=== PATIENT | female | born 1990 | race Caucasian/White ===

== ENCOUNTER 2022-01-11 01:22 | Day surgery (SDC) | payer OTHER, SELFPAY ==
[2022-01-02 11:08] VITALS: BMI 23.4
--- NOTE | 2022-01-10 15:35 | P.PNAN_ITS ---
Anes - Initial Pre Proc Eval Procedure: Operation Date: 01/11/22 13:30 Proposed Procedures p Esophagogastroduodenoscopy - Juventino Cui MD Date/Time: 01/10/22 15:35 Surgeon: Juventino Cui MD Pre Op Diagnosis: hematemesis, vomiting Patient Data Age: 31 Gender: F Height: 1.6 m Weight: 60 kg Allergies Allergy/AdvReac Type Severity Reaction Status Date / Time No Known Allergies Allergy Verified 01/02/22 11:05 Home Medications Medication Instructions Recorded Confirmed Type bupropion HCl 150 mg tablet,12 hr 150 mg PO DAILY 01/16/21 01/02/22 History sustained-release etonogestrel 68 mg subdermal 1 implant subdermal ONCE 01/16/21 01/02/22 History implant (Nexplanon) Patient hx anesthesia problems: none Family hx anesthesia problems: none Results Review: All pre-operative results and documents have been reviewed as part of the pre- operative evaluation. [facility] Past Medical History Medical History (Updated 01/11/22 @ 11:39 by Juventino Cui MD) Anxiety GERD (gastroesophageal reflux disease) Surgical History Surgical History (Updated 11/28/21 @ 08:45 by Mila Singh MA) History of tonsillectomy Family History Family History Grandparent Hypertension Cerebrovascular accident Family history of coronary artery disease Diabetes mellitus Mother Family history of malignant neoplasm of ovary Other Family history of arthritis Family history of malignant neoplasm Social History Social History (Updated 11/28/21 @ 08:47 by Mila Singh MA) Smoking status: Former smoker Tobacco type: cigarettes Second hand tobacco smoke exposure: Yes Alcohol intake: current Alcohol use details: socially Substance use: never Substance use type: does not use Living arrangements: with roommate(s) Spiritual care concerns: No Anes - Eval Final PreProcedure Day of Procedure 01/10/22 15:35 Patient weight: normal Heart: regular rate and rhythm Lungs: clear to auscultation Airway: Mallampati scale class II Neurological: alert and oriented Last oral intake: >/= 8 hours ASA classification: II Emergent: no Anesthetic plan: proceed Anesthesia type and monitoring: general GIVS and standard monitoring Results Review: All pre-operative results and documents have been reviewed as part of the pre- operative evaluation. Informed Consent: The patient's anesthetic plan and its attendant risks and benefits were discussed with the patient/family/POA. Questions were solicited and answers provided to the satisfaction of the patient/family/POA.
--- NOTE | 2022-01-11 11:38 | PM.HPGS ---
History of Present Illness History of Present Illness Consent: Risks, benefits, and alternatives have been discussed and questions answered. Patient agrees to proceed with procedure. Chief complaint: hematemesis, vomiting Narrative: Jennifer Morales is a 31 year old female Who was being investigated because of hematemesis.? She states for the past month she has had episodes of emesis at least once a day. Reports emesis is yellow acid or phlegm in nature with intermittent bright red blood. She denies any coffee ground emesis. She has associated epigastric discomfort that radiates to right upper quadrant. epigastric pain is worse 30-60 mins after eating last approximately 2 hours. Pain improves with heating pad. States she was dx with gastric ulcer by upper GI when she was in high school and has been on omeprazole 40 mg since. She continues to have breakthrough reflux symptoms despite PPIs and bland diet. She does have a history of alcohol use, usually 2-3 glasses of vodka and juice daily but stopped drinking 3 weeks ago when the emesis began. She denies any nsaid use or blood thinners.? Review of Systems Review of Systems: All systems reviewed & are unremarkable except as noted in HPI and below PMFSH Past Medical History Medical History Anxiety GERD (gastroesophageal reflux disease) Surgical History Surgical History History of tonsillectomy Family History Family History Grandparent Hypertension Cerebrovascular accident Family history of coronary artery disease Diabetes mellitus Mother Family history of malignant neoplasm of ovary Other Family history of arthritis Family history of malignant neoplasm Social History Social History Smoking status: Former smoker Tobacco type: cigarettes Second hand tobacco smoke exposure: Yes Alcohol intake: current Alcohol use details: socially Substance use: never Substance use type: does not use Living arrangements: with roommate(s) Spiritual care concerns: No Meds Home Medications and Allergies Home Medications Medication Instructions Recorded Confirmed Type bupropion HCl 150 mg tablet,12 hr 150 mg PO DAILY 01/16/21 01/02/22 History sustained-release etonogestrel 68 mg subdermal 1 implant subdermal ONCE 01/16/21 01/02/22 History implant (Nexplanon) Allergies Allergy/AdvReac Type Severity Reaction Status Date / Time No Known Allergies Allergy Verified 01/11/22 12:42 Exam Const: General: alert Orientation/consciousness: patient oriented x3 Resp: Auscultation: clear to auscultation bilaterally Cardio: Rhythm: regular rhythm GI: GI Palp: Yes Soft to palpation and No Tenderness to palpation present (GI) Neuro: General: patient oriented x3 Assessment and Plan Assessment and plan (1) Hematemesis: Code(s): K92.0 - Hematemesis Status: Acute Assessment and Plan: EGD with possible biopsy or dilatation or cautery.
[2022-01-11 12:43] VITALS: BP 119/74; PULSE 63; RESP 20; TEMP 36.9; O2SAT 100
[2022-01-11] MEDS: LACTATED RINGERS 1,000 ML 150 ML IV CONT (12:45)
[2022-01-11 13:00] VITALS: BP 92/55; PULSE 68; RESP 19; O2SAT 99
[2022-01-11 13:10] VITALS: BP 94/53; PULSE 65; RESP 20; O2SAT 100
[2022-01-11 13:20] VITALS: BP 117/74; PULSE 70; RESP 22; O2SAT 100
== END 2022-01-11 13:33 | disposition home or self-care (01) ==
PROVIDERS: PCP Physician Assistant; Visit Provider Internal Medicine Gastroenterology
PROC: 0DJ08ZZ Inspection of Upper Intestinal Tract, Via Natural or Artificial Opening Endoscopic (ICD-10-PCS; CPT 43235; principal; 2022-01-11 13:30)
DX: K21.9 Gastro-esophageal reflux disease without esophagitis (principal); K29.70 Gastritis, unspecified, without bleeding; F41.9 Anxiety disorder, unspecified; Z87.891 Personal history of nicotine dependence
CPT/HCPCS: 43239; 87081; 88305; J2704; J7120

== ENCOUNTER 2022-08-30 09:06 | Outpatient (CLI) | payer OTHER, SELFPAY ==
--- NOTE | ~2022-08-30 | XR_ITS ---
EXAMINATION: XR knee LT 3V DATE: 08/30/2022 09:32 INDICATION: Left knee pain and swelling TECHNIQUE: Three views of the left knee were obtained. COMPARISON: 09/06/2015 FINDINGS: Alignment is normal. No fracture or osteochondral lesion. Joint spaces are normal with no e rosions. No joint effusion/synovitis. Soft tissues are unremarkable. IMPRESSION: 1. No acute osseous abnormality. Reviewed, dictated and finalized at location L. ER PRINTER
== END 2022-08-30 09:07 | disposition home or self-care (01) ==
LOC: CHSIMG 09:12
PROVIDERS: PCP Physician Assistant; Visit Provider Physician Assistant
DX: M25.562 Pain in left knee (principal)
CPT/HCPCS: 73562

== ENCOUNTER 2022-09-20 14:16 | Emergency (ER) | payer OTHER, SELFPAY ==
--- NOTE | 2022-09-20 14:20 | ED.EAR ---
HPI - Ear Problem General Chief complaint: Ear Stated complaint: Right Ear Pain Time Seen by Provider: 09/20/22 14:20 Source: patient and RN notes reviewed History of Present Illness HPI Narrative: Patient is a 32-year-old female who presents to urgent care with complaints of persistent ear pain since August 29. Patient was seen by her primary care doctor on August 29 and given amoxicillin. Denies any other upper respiratory complaints. Denies any fever. Patient has been taking Tylenol for her pain. Patient states her son was diagnosed with strep yesterday. No acute distress noted. Patient aware of the plan of care. Some parts of this dictation were generated by voice recognition software and may contain typographical and/or grammatical inaccuracies. Related Data Home Medications Medication Instructions Recorded Confirmed No Home Medications 09/20/22 09/20/22 Allergies Allergy/AdvReac Type Severity Reaction Status Date / Time No Known Allergies Allergy Verified 09/20/22 14:24 Review of Systems Review of Systems: CONSTITUTIONAL: Denies fever, chills, or sweats. EYES: Denies visual changes, redness, or discharge. ENT: Denies rhinorrhea, congestion. Reports right otalgia and sore throat CARDIOVASCULAR: Denies chest pain, palpitations, or edema. RESPIRATORY: Denies cough or dyspnea. GASTROINTESTINAL: Denies abdominal pain, nausea, vomiting, or diarrhea. GENITOURINARY: Denies dysuria or hematuria. SKIN: Denies rash or itching. MUSCULOSKELETAL: Denies back pain, joint pain, or myalgia. NEUROLOGIC: Denies headache, numbness, or weakness. All other systems reviewed are negative, except as documented in HPI. [facility] Past Medical History Medical History Anxiety GERD (gastroesophageal reflux disease) Surgical History Surgical History History of tonsillectomy Family History Family History Grandparent Hypertension Cerebrovascular accident Family history of coronary artery disease Diabetes mellitus Mother Family history of malignant neoplasm of ovary Other Family history of arthritis Family history of malignant neoplasm Social History Social History Smoking status: Former smoker Tobacco type: cigarettes Second hand tobacco smoke exposure: Yes Alcohol intake: current Alcohol use details: socially Substance use: never Substance use type: does not use Living arrangements: with roommate(s) Occupation/Education: occupation Spiritual care concerns: No Comments At the time of my signature, I reviewed and agree with the nursing past medical, surgical, social, and family history. There is no relevant family history pertinent to the patient complaint. Exam Narrative: GENERAL: This is a well-nourished, well-developed patient, in no apparent distress. HEAD: normocephalic, atraumatic. EYES: PERRL. Sclera clear/white. Vision is grossly intact. EARS: External ears normal, auditory canals clear and without drainage, TMs normal without perforation. Hearing grossly intact. NOSE: External nose normal with no obvious nasal discharge, nares without redness, no rhinorrhea. THROAT: Mucous membranes moist, posterior pharynx clear. Moderate postnasal drainage NECK: Neck supple, non-tender mild bilateral submandibular lymphadenopathy RESPIRATORY: Clear to auscultation. Breath sounds equal bilaterally. No wheezes, rales, or rhonchi. SKIN: warm, intact with no suspicious lesions or rash, good texture and turgor. NEURO: awake, alert, and oriented to person, place and time. There were no obvious focal neurologic abnormalities. EXTREMITIES: No clubbing, cyanosis, or edema. Course Course Level of Care: Express Care Visit Vital Signs Vital signs: Vital Signs Temperature 9
[2022-09-20 14:22] VITALS: BP 142/84; PULSE 83; RESP 16; TEMP 37.2; O2SAT 100
== END 2022-09-20 15:13 | disposition home or self-care (01) ==
PROVIDERS: Emergency Provider Nurse Practitioner Family; PCP Physician Assistant
DX: H92.01 Otalgia, right ear (principal); Z87.891 Personal history of nicotine dependence; K21.9 Gastro-esophageal reflux disease without esophagitis
CPT/HCPCS: 87081; 87880; 99213; G0463

== ENCOUNTER 2023-12-01 09:34 | Emergency (ER) | payer OTHER, SELFPAY ==
--- NOTE | ~2023-12-01 | XR_ITS ---
EXAMINATION: XR skull min 4V DATE: 12/01/2023 10:19 INDICATION: Headache. Fall. TECHNIQUE: 4 views of the skull were obtained. COMPARISON: None. FINDINGS: Bone alignment is normal. No fracture. IMPRESSION: 1. No fracture. Reviewed, dictated and finalized at location A. IMPRESSION: 1. No fracture.
[2023-12-01 09:34] VITALS: BP 136/88; PULSE 88; RESP 18; TEMP 36.3; O2SAT 99
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
== END 2023-12-01 10:29 | disposition home or self-care (01) ==
PROVIDERS: Emergency Provider Emergency Medicine; PCP Family Medicine
DX: H60.502 Unspecified acute noninfective otitis externa, left ear (principal); H66.92 Otitis media, unspecified, left ear; S09.90XA Unspecified injury of head, initial encounter; F41.9 Anxiety disorder, unspecified; Z87.891 Personal history of nicotine dependence
CPT/HCPCS: 70260; 99283

== ENCOUNTER 2024-02-07 07:49 | Outpatient (CLI) | payer OTHER, SELFPAY | END 2024-02-07 07:50 | disposition home or self-care (01) | LOC: ANHAUDASC 07:50 | PROVIDERS: PCP Family Medicine; Visit Provider Otolaryngology | DX: H90.6 Mixed conductive and sensorineural hearing loss, bilateral (principal); H69.92 Unspecified Eustachian tube disorder, left ear; H93.11 Tinnitus, right ear; Z86.69 Personal history of other diseases of the nervous system and sense organs | CPT/HCPCS: 92557; 92567 ==

== ENCOUNTER 2024-07-19 08:12 | Emergency (ER) | payer OTHER, SELFPAY ==
[2024-07-19 08:14] VITALS: BP 116/66; PULSE 65; RESP 16; TEMP 37.5; O2SAT 100
--- NOTE | 2024-07-19 08:32 | ED_ITS ---
HPI - URI/Sore Throat General Chief Complaint: Upper Respiratory Infection Stated Complaint: Sore Throat/Cough History of Present Illness HPI Narrative: Patient presents with sore throat nasal congestion cough fever body aches no shortness of breath no chest pain. Patient denies any trouble swallowing no drooling. Patient does work in [employer] for and has had several COVID positive patients and is worried that she might have COVID-19 at this time. Related Data Home Medications ?Medication ?Instructions ?Recorded ?Confirmed ?Last Taken ?Type etonogestrel 68 mg subdermal 1 implant subdermal ONCE 07/19/24 Unknown History implant (Nexplanon) Allergies Allergy/AdvReac Type Severity Reaction Status Date / Time No Known Allergies Allergy Verified 07/19/24 08:37 Review of Systems Review of Systems: CONSTITUTIONAL: Denies chills, or sweats. Reports fever and generalized body aches EYES: Denies visual changes, redness, or discharge. ENT: Denies otalgia. Reports nasal congestion runny nose and sore throat CARDIOVASCULAR: Denies chest pain, palpitations, or edema. RESPIRATORY: Denies dyspnea. Reports occasional cough GASTROINTESTINAL: Denies abdominal pain, nausea, vomiting, or diarrhea. GENITOURINARY: Denies dysuria or hematuria. SKIN: Denies rash or itching. MUSCULOSKELETAL: Denies back pain, joint pain, or myalgia. Reports generalized body aches NEUROLOGIC: Denies headache, numbness, or weakness. PSYCHIATRIC: Denies anxiety or depression. [facility] Past Medical History Medical History Anxiety GERD (gastroesophageal reflux disease) Surgical History Surgical History History of tonsillectomy Family History Family History Grandparent Hypertension Cerebrovascular accident Family history of coronary artery disease Diabetes mellitus Mother Family history of malignant neoplasm of ovary Other Family history of arthritis Family history of malignant neoplasm Social History Social History Smoking status: Former smoker Tobacco type: cigarettes Second hand tobacco smoke exposure: Yes Alcohol intake: current Alcohol use details: socially Substance use: never Substance use type: does not use Living arrangements: with roommate(s) Occupation/Education: occupation Spiritual care concerns: No Comments At time of signature, agree with nursing past medical, surgical, social and family history. There is no relevant family history pertinent to the presenting complaint Exam Narrative: The patient is a well-developed, well-nourished in no acute distress. SKIN: Skin is warm and dry without erythema, swelling or exudate. There is good turgor. No tenting. HEAD: Atraumatic. Normocephalic. No temporal or scalp tenderness. EYES: Moist and bright. Sclera and conjunctivae normal. No discharge. PERRLA. Extraocular motions intact. Gross visual acuity intact. EARS: Pinna is normal shape and contour. Clear external auditory canals. TM pearly aguilar with good cone of light, no erythema or suppuration. Bilateral cerumen noted no gross hearing deficit. NOSE: pink, moist mucosa with good air movement. Clear rhinorrhea without nasal flaring. Septum midline. Mouth: moist mucous membranes. THROAT; mild erythema noted to posterior oropharynx with moderate postnasal drainage. Without exudate or ulceration.. Uvula midline. Normal movement of soft palate. NECK: Supple and nontender with full range of motion without discomfort. No meningeal signs. LUNGS: Equal and bilateral breath sounds without wheezes, rales or rhonchi. CHEST: The chest wall is without retractions or use of accessory muscles. HEART: Has a regular rate and rhythm without murmur, gallops, click or rub. ABDOMEN: Soft, nontender with positive active bowel sounds. No rebound tenderness. EXTREMITIES: Without cyanosis, clubbing or edema. Equal 2+ distal pulses and 2 second capillary refill noted. NEUROLOGIC: alert, active, . The patient moves all extremities with normal muscle strength. Normal muscle tone is noted. Normal coordination is noted. NO focal neurological findings noted. Course Course Level of Care: Express Care Visit Vital Signs Vital signs: Vital Signs Temperature 37.5 C 07/19/24 08:14 Pulse Rate 65 07/19/24 08:14 Respiratory Rate 16 07/19/24 08:14 Blood Pressure 116/66 07/19/24 08:14 Pulse Oximetry 100 07/19/24 08:14 Oxygen Delivery Room Air 07/19/24 08:14 Temperature 37.5 C 07/19/24 08:14 Pulse Rate 65 07/19/24 08:14 Respiratory Rate 16 07/19/24 08:14 Blood Pressure 116/66 07/19/24 08:14 Pulse Oximetry 100 07/19/24 08:14 Oxygen Delivery Room Air 07/19/24 08:14 Discharge Plan Discharge Clinical Impression: Viral infection Upper respiratory infection Qualifiers: URI type: unspecified URI Qualified Code(s): J06.9 - Acute upper respiratory infection, unspecified Pharyngitis Qualifiers: Pharyngitis/tonsillitis etiology: unspecified etiology Qualified Code(s): J02.9 - Acute pharyngitis, unspecified Additional Instructions: *Throw away your current toothbrush and begin using a new toothbrush in 48 hours in order to prevent re-infection. If anyone else's toothbrush is stored near yours, they should also throw away their current toothbrush and begin using a new one. *Sanitize all reusable water bottles. *Do not share items with others. *Wash your hands often. Supportive care/Soothing measures/Pain relief: *Avoid cigarette smoke (including secondhand smoke) *Avoid acidic foods and beverages *Eat a soft diet for the next 3-4 days *Salt water gargles may alleviate some of the throat discomfort. Most recipes call for ? to ? teaspoon of salt per 8 ounces (approximately 240 mL) of warm water. *You can take tylenol or ibuprofen per the package instructions for pain/fever. *Sipping cold or warm beverages (eg, tea with honey or lemon) *Eat cold or frozen desserts (eg, ice cream, popsicles) *Sucking on ice *Sucking on hard candy Viruses are everywhere and can spread like wildfire. Sx can last up to 3-4 weeks. Treatment is aimed toward your specific symptoms. You must treat your symptoms in order to feel better while the virus runs it's course. Increase fluids especially water. Do not share items with others. You can take Tylenol or ibuprofen per the package instructions for pain/fever. Wash your hands as often as possible. Purchase and begin using an over the counter antihistamine/decongestant combo such as Zyrtec D, Whitney D, Claritin D as well as Flonase nasal spray per the package instructions. Salt water gargles may alleviate some of your throat discomfort. Go to the ER if your symptoms become worse of if ANY new symptoms develop Patient Language: Cymro Prescriptions: New benzonatate 100 mg capsule 100 mg PO TID PRN (Reason: cough) 5 Days Qty: 10 0RF loratadine [Claritin] 10 mg tablet 10 mg PO DAILY 14 Days Qty: 60 0RF dexamethasone 4 mg tablet 8 mg PO ONCE Qty: 2 0RF fluticasone propionate [Flonase Allergy Relief] 50 mcg/actuation spray,suspension 2 spray NASAL BID Qty: 9.9 0RF Rx Instructions: administer into each nostril No Action Nexplanon 68 mg implant 1 implant subdermal ONCE Rx Instructions: as a single dose Follow-up/Referrals: Latasha,Cornelio Molina MD [Primary Care Provider] - Stand Alone Forms: Work/School Release IP
[2024-07-19 08:45] LABS: EDSTREPNEGPOS1 Negative (Negative)
[2024-07-19 08:53] LABS: EDCOVIDSCREEN Negative (Negative)
--- OUTSIDE RECORDS SUMMARY | 2024-07-26 06:30 | XMS_ITS | Encounter Summary ---
Author Organization [facility] Address [address] [place] [address]. 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
--- OUTSIDE RECORDS SUMMARY | 2024-07-26 06:30 | XMS_ITS | Encounter Summary ---
Author Organization [facility] Address [address] [place] [address]. 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
--- OUTSIDE RECORDS SUMMARY | 2024-07-26 06:30 | XMS_ITS | Encounter Summary ---
Author Organization [facility] Address [address] [place] [address]. [place], [place] [id number] [place] [address] Care Team Providers Care Scrap Carrier Name Role Phone None, Provider MD Primary Care Provider Unavaila ble Reason for Visit * Reason Comments Flank Pain Urinary Symptoms Encounter Details Date Type Department Care Team (Late st Contact Info) Description 10/08/2019 7:29 PM CDT - 10/08/2019 8:30 PM CDT Emergency [facility] [address] [place] [address] [place] [address] Mars Galvan MD [address] [place] [address] Flank Pain; Urinary Symptoms Discharge Disposition: Home or Self Care (Routine Discharge) Social History Tobacco Use Types Packs/Day Years Used Date Smoking Tobacco: Every Day Cigarettes Smokeless Tobacco: Current Alcohol Use Standard Drinks/Week Comments Yes 0 (1 standard drink = 0.6 oz pur e alcohol) Comments No Sex and Gender Information Value Date Recorded Sex Assigned at Not on file 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 Gender Identity Not on file Sexual Orientation Not on file documented as of this encounter Last Filed Vital Signs Vital Sign Reading Time Taken Comments Blood Pressure 132/71 10/08/2019 7:26 PM CDT Pulse 72 10/08/2019 7:26 PM CDT Temperature 36.9 ??C (98.4 ??F) 10/08/2019 7:26 PM CD T Respiratory Rate 18 10/08/2019 7:26 PM CDT Oxygen Saturation 97% 10/08/2019 7:26 PM CDT Inhaled Oxygen Concentration - - Weight 52.6 kg (116 lb) 10/08/2019 7:26 PM CDT Height 160 cm (5' 3 ) 10/08/2019 7:26 PM CDT Body Mass Index 20.55 10/08/2019 7:26 PM CDT documented in this encounter Discharge Instructions * Attachments The following attachments cannot be sent through Care Everywhere. * Kidney Infection (Ethiopian) documented in this encounter Medications at Time of Discharge cephALEXin (KEFLEX) 500 MG capsule Take 1 capsule (500 mg total) by mouth 4 (four) times daily for 7 days. 28 capsule 10/08/2019 10/15/2019 documented as of this encounter ED Notes * Michelle Swann RN - 10/08/2019 7:28 PM CDT Arrives w right flank pain, and urinary sx onset Saturday, noticed blood in urine today. Took pyridium earlier for sx. Denies fever * Mars Galvan MD - 10/08/2019 7:19 PM CDT eMERGENCY dEPARTMENT eNCOUnter I, aydee Juarez, am personally taking down the notes in the presence of Mars Galvan MD.?Take no action on this note until reviewed and authenticated??by the physician. CHIEF COMPLAINT Chief Complaint Patient presents with ??? Flank Pain ??? Urinary Symptoms HPI The patient is a 29 year old female with a PMHx of frequent UTI's, presents to the ED for evaluation of right flank pain onset 2 days ago. The patient states that she has the associated symptoms of burning during urination, hematuria, and that she has pain when walking. The patient reports that herUTI's normally go away on their own. The patient denies any complaint, distress or injury in addition to those already recorded. The patient is otherwise in their baseline state of health and no other positive complaints were stated upon review of systems. History provided by: Patient acid remover used: No ALLERGIES No Known Allergies CURRENT MEDICATIONS Current Outpatient Medications Medication Sig ??? cephALEXin (KEFLEX) 500 MG capsule Take 1 capsule (500 mg total) by mouth 4 (four) times daily for 7 days. PAST MEDICAL HISTORY Past Medical History: Diagnosis Date ??? Renal disorder SURGICAL HISTORY History reviewed. No pertinent surgical history. SOCIAL HISTORY Social History Socioeconomic History ??? Marital status: Single Spouse name: Not on file ??? Number of children: Not on file ??? Years of education: Not on file ??? Highest education level: Not on file Occupational History ??? Not on file Social Needs ??? Financial resource strain: Not on file ??? Food insecurity: Worry: Not on file Inability: Not on file ??? Transportation needs: Medical: Not on file Non-medical: Not on file Tobacco Use ??? Smoking status: Current Every Day Smoker Packs/day: 0.25 Types: Cigarettes ??? Smokeless tobacco: Current User Substance and Sexual Activity ??? Alcohol use: Yes ??? Drug use: Not Currently ??? Sexual activity: Not Currently Lifestyle ??? Physical activity: Days per week: Not on file Minutes per session: Not on file ??? Stress: Not on file Relationships ??? Social connections: Talks on phone: Not on file Gets together: Not on file Attends holiness service: Not on file Active member of club or organization: Not on file Attends meetings of clubs or organizations: Not on file Relationship status: Not on file ??? Intimate partner violence: Fear of current or ex partner: Not on file Emotionally abused: Not on file Physically abused: Not on file Forced sexual activity: Not on file Other Topics Concern ??? Not on file Social History Narrative ??? Not on file FAMILY HISTORY No family history on file. REVIEW OF SYSTEMS Review of Systems Constitutional: Negative. HENT: Negative. Eyes: Negative. Respiratory: Negative. Cardiovascular: Negative. Gastrointestinal: Negative. Endocrine: Negative. Genitourinary: Positive for difficulty urinating (burning), flank pain (right) and hematuria. Skin: Negative. Allergic/Immunologic: Negative. Neurological: Negative. Hematological: Negative. Psychiatric/Behavioral: Negative. All other ROS negative unless noted above in HPI. PHYSICAL EXAM Physical Exam Constitutional: She is oriented to person, place, and time. She appears well- developed and well-nourished. No distress. HENT: Head: Normocephalic and atraumatic. Eyes: EOM are normal. Neck: Normal range of motion. Pulmonary/Chest: Effort normal. Abdominal: There is tenderness in the suprapubic area. There is CVA tenderness (right). Musculoskeletal: Normal range of motion. Neurological: She is alert and oriented to person, place, and time. Skin: Skin is warm and dry. Psychiatric: She has a normal mood and affect. Her behavior is normal. Nursing note and vitals reviewed. Filed Vitals: 10/08/19 1926 BP: 132/71 Pulse: 72 Resp: 18 Temp: 98.4 ??F (36.9 ??C) TempSrc: Temporal SpO2: 97% Weight: 52.6 kg (116 lb) Height: 5' 3 (1.6 m) EKG RADIOLOGY No orders to display LABS Results for orders placed or performed during the hospital encounter of 10/08/19 URINALYSIS Result Value Ref Range COLOR (U) YELLOW TRANSPARENCY CLEAR Specific [place] (U) 1.015 1.000 - 1.025 U PH 7.0 5.0 - 8.0 LEUKOCYTE ESTERASE 3+ (A) NEGATIVE NITRITES POSITIVE (A) NEGATIVE PROTEIN(U) NEGATIVE NEGATIVE URINE GLUCOSE NEGATIVE NEGATIVE U KETONES NEGATIVE NEGATIVE UROBILINOGEN 1.0 (H) <1.0 EU/DL BILIRUBIN (U) NEGATIVE NEGATIVE BLOOD TRACE (A) NEGATIVE WBC/HPF 20-50 (A) 0 - 5 /HPF RBC/HPF 0-5 0 - 5 /HPF EPI/HPF MANY /LPF BACTERIA (URINE) TRACE /HPF ED MEDICATIONS Medications cephALEXin (KEFLEX) capsule 500 mg (has no administration in time range) PROCEDURES Procedures CONSULTS: ED COURSE & MEDICAL DECISION MAKING MDM Patient presents with symptoms of recurrent UTI. Clinically has pyelonephritis but she is nontoxic so we will initiate oral antibiotics and recommend close outpatient follow-up and a culture is been sent. FINAL IMPRESSION Medications cephALEXin (KEFLEX) capsule 500 mg (has no administration in time range) Current Discharge Medication List START taking these medications Details cephALEXin (KEFLEX) 500 MG capsule Take 1 capsule (500 mg total) by mouth 4 (four) times daily for 7 days. Qty: 28 capsule, Refills: 0 Class: Eprescribe Pharmacy: [facility] [address] [place] [address] (Ph #: [phone]) Recheck with your physician in the next 24 to 48 hours if not improving or return here if worse SNOMED CT(R) 1. Pyelonephritis of right kidney PYELONEPHRITIS Recheck with your physician in the next 24 to 48 hours if not improving or return here if worse New Prescriptions CEPHALEXIN (KEFLEX) 500 MG CAPSULE Take 1 capsule (500 mg total) by mouth 4 (four) times daily for 7 days. Gorge Bernabe, 10/08/19, 20:19. Provider Attestation: Portions of this note were transcribed by the scribe. I, Mars Galvan, personally performed the history, physical exam and medical decision making; and confirmed the accuracy of the information inthe transcribed note. Authenticated by Mars Galvan MD 10/08/192018 documented in this encounter Plan of Treatment Not on file documented as of this encounter Procedures Procedure Name Priority Date/Time Associated Diagnosis Comments HC URINALYSIS AUTO W/MICRO STAT 10/08/2019 7:51 PM CDT URINE BACTERIA CULTURE STAT 10/08/2019 7:51 PM CDT documented in this encounter Results * CULTURE URINE (10/08/2019 7:51 PM CDT) SPEC DESCRIPTION URINE CLEAN CATCH 10/08/2019 7:49 PM CDT [facility] SPECIAL REQUESTS NO SPECIAL REQUEST 10/08/2019 7:49 PM CDT [facility] CULTURE RESULT FEW CONTAMINANTS 09/26 2:47 AM CDT [facility] URINE SPECIMEN OBTAINED BY CLEAN CATCH PROCEDURE / Unknown 10/08/2019 7:51 PM CDT 10/08/2019 7:55 PM CDT Mars Galvan MD MICROBIOLOGY - GENERAL ORDERA BLES Final Result [facility] [address] [place] [address], [place] [phone] [id number] [facility] [address] [place] [address], [place] [phone] * (ABNORMAL) URINALYSIS (10/08/2019 7:51 PM CDT) COLOR (U) YELLOW 10/08/2019 8:13 PM CDT [facility] TRANSPARENCY CLEAR 10/08/2019 8:13 PM CDT [facility] SPECIFIC GRAVITY (U) 1.015 1.000 - 1.025 10/08/2019 8:13 PM CDT [facility] U PH 7.0 5.0 - 8.0 10/08/2019 8:13 PM CDT [facility] LEUKOCYTES (U) 3+(A) NEGATIVE 10/08/2019 8:13 PM CDT [facility] NITRITES POSITIVE(A) NEGATIVE 10/08/2019 8:13 PM CDT [facility] PROTEIN (U) NEGATIVE NEGATIVE 10/08/2019 8:13 PM CDT [facility] URINE GLUCOSE NEGATIVE NEGATIVE 10/08/2019 8:13 PM CDT [facility] KETONES MG/DL (U) NEGATIVE NEGATIVE 10/08/2019 8:13 PM CDT [facility] UROBILINOGEN 1.0(H) <1.0 EU/DL 10/08/2019 8:13 PM CDT [facility] BILIRUBIN (U) NEGATIVE NEGATIVE 10/08/2019 8:13 PM CDT [facility] BLOOD (U) TRACE(A) NEGATIVE 10/08/2019 8:13 PM CDT [facility] WBC/HPF 20-50(A) 0 - 5 /HPF 10/08/2019 8:13 PM CDT [facility] RBC/HPF 0-5 0 - 5 /HPF 10/08/2019 8:13 PM CDT [facility] EPI/HPF MANY /LPF 10/08/2019 8:13 PM CDT [facility] BACTERIA (U) TRACE /HPF 10/08/2019 8:13 PM CDT [facility] URINE SPECIMEN OBTAINED BY CLEAN CATCH PROCEDURE / Unknown 10/08/2019 7:51 PM CDT us Mars Galvan MD URINE ORDERABLES Final Result [facility] [address] [place] [address], documented in this encounter Visit Diagnoses Diagnosis Pyelonephritis of right kidney- Primary documented in this encounter Administered Medications Inactive Administered Medications - up to 3 most recent administrations Medication Order MAR Action Action Date Dose Rate Site cephALEXin (KEFLEX) capsule 500 mg 500 mg, Oral, Once, 1 dose, On Alysa 10/08/19 at 2029 Given 10/08/2019 8:29 PM CDT 500 mg documented in this encounter Active and Recently Administered Medications Times are shown in CDT. Scheduled Medication Order 10/06/2019 10/07/2019 10/08/2019 cephALEXin (KEFLEX) capsule 500 mg (COMPLETED) 500 mg, Oral, Once, 1 dose, On Alysa 10/08/19 at 2029 2028 (Given - Provid er: Vero Carmichael RN) documented in this encounter Care Teams Scrap Carrier Relationship Specialty Start Date End Date None, Provider, PCP - General 10/08/19 documented as of this encounter
--- OUTSIDE RECORDS SUMMARY | 2024-07-26 06:30 | XMS_ITS | Clinical Summary ---
Author Organization [facility] Address [address] [place] [address]. 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 Gender Identity Not on file Sexual Orientation Not on file Last Filed Vital Signs Vital Sign Reading [...] Mass Index 20.55 10/08/2019 7:26 PM CDT Plan of Treatment Health Maintenance Due Date Last Done Comments Cervical Cancer Screening Pa p Smear (Age 30 to 64) Every 3 Years 1990 Annual Physical 1993 Hepatitis C 2008 DTaP, Tdap and Td Vaccines ( 1 - Tdap) 2009 Hepatitis B Vaccines (1 of 3 - 19+ 3-dose series) 2009 Cervical Cancer Screening Pa p with HPV Testing (Age 30 to 64) Every 5 Years 2020 Cervical Cancer Screening with HPV 2020 COVID-19 Vaccine (2023-2 5 season) 2024 Influenza Adult (#1) 2024 HPV Vaccines Aged Out No longer eligi ble based on patient's age to complete this topic Meningococcal Vaccine Aged Out No maggy sharonda eligible based on patient's age to complete this topic Pneumococcal Vaccine: Pediat rics (0 to 5 Years) and At-Risk Patients (6 to 64 Years) Aged Out No longer eligible b ased on patient's age to complete this topic RSV Immunizations Under 20 Months Aged Out No longer eligible based on patient's age to complete this topic Care Teams Organisation And Methods Analyst Relationship Specialty Start Date End Date None, Provider, PCP - General 10/08/19
--- OUTSIDE RECORDS SUMMARY | 2024-07-26 06:30 | XMS_ITS | Encounter Summary ---
Author Organization [facility] Address [address] [place] [address]. 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
--- OUTSIDE RECORDS SUMMARY | 2024-07-26 06:31 | XMS_ITS | Encounter Summary ---
Author Organization [facility] Address [address] [place] [address] Care Team Providers Care Construction Engineering Manager Name Role Phone Unavailable Primary Care Provider Unavailabl e Encounter Details Date Type Department Care Team (Late st Contact Info) Description 05/19/2021 11:45 AM CDT Rapid Evaluation [facility] Community Testing [address] [address] Social History Tobacco Use Types Packs/Day Years Used Date Smoking Tobacco: Never Assessed Comments Unknown Sex and Gender Information Value Date Recorded Sex Assigned at Not on file Legal Sex Female 11:37 AM CDT Gender Identity Not on file Sexual Orientation Not on file documented as of this encounter Plan of Treatment Not on file documented as of this encounter Visit Diagnoses Not on filedocumented in this encounter
--- OUTSIDE RECORDS SUMMARY | 2024-07-26 06:31 | XMS_ITS | Encounter Summary ---
Author Organization [facility] Address [address] [place] [address] Care Team Providers Care Christmas Tree Farm Crew Boss Name Role Phone Unavailable Primary Care Provider Unavailabl e Encounter Details Date Type Department Care Team (Late st Contact Info) Description 05/19/2021 Lab Requisition [facility] Community Testing [facility] [address] [place] [address] Luke Magdaleno MD [address] [place] [address] [address] [place], [place] [address] Social History Tobacco Use Types Packs/Day Years [...] Procedure Name Priority Date/Time Associated Diagnosis Comments SARS-COV-2 PCR [facility] ONLY Routine 05/19/2021 11:45 AM CDT documented in this encounter Visit Diagnoses Not on filedocumented in this encounter
--- OUTSIDE RECORDS SUMMARY | 2024-07-26 06:31 | XMS_ITS | Clinical Summary ---
Author Organization [facility] Care Team Providers Care Coil Former Name Role Phone Unavailable Primary Care Provider Unavailabl e Social History Tobacco Use Types Packs/Day Years Used Date Smoking Tobacco: Never Assessed Comments Unknown Sex and Gender Information Value Date Recorded Sex Assigned at Not on file Legal Sex Female 11:37 AM CDT Gender Identity Not on file Sexual Orientation Not on file Plan of Treatment Health Maintenance Due Date Last Done Comments Hepatitis C Virus (HCV) Screening 1990 Pap Smear 2011 Cervical Cancer Screening (CCS) 2020 HPV/Cotest 2020 SARS-COV-2 Immunization ( season) 2023 Influenza Immunization (Season Ended) 2024 Hepatitis B Immunization Completed 997, 05/18/1996, 04/10/1996 DTaP/Tdap/Td Immunization Discontinued 2007, 03/08/2005, 04/19/1992, Additional history exists TdaP Immunization Completed 02/20/2008 Meningococcal Immunization (ACWY) Aged Out No longer eligible based on patient's age to complete this topic Pneumococcal Immunization Combined Aged Out No longer eligible based on patient's age to complete this topic Rotavirus Immunization Aged Out No lo nger eligible based on patient's age to complete this topic
== END 2024-07-19 08:50 | disposition home or self-care (01) ==
LOC: EXPBETH 08:15
PROVIDERS: Emergency Provider Nurse Practitioner Family; PCP Family Medicine
DX: B34.9 Viral infection, unspecified (principal); J06.9 Acute upper respiratory infection, unspecified; J02.9 Acute pharyngitis, unspecified; Z20.822 Contact with and (suspected) exposure to COVID-19; F17.210 Nicotine dependence, cigarettes, uncomplicated; K21.9 Gastro-esophageal reflux disease without esophagitis
CPT/HCPCS: 87081; 87426; 87880; 99213; G0463

== ENCOUNTER 2025-07-16 09:32 | Emergency (ER) | payer OTHER, SELFPAY ==
[2025-07-16 09:40] VITALS: BP 123/66; PULSE 61; RESP 18; TEMP 36.6; O2SAT 100
--- NOTE | 2025-07-16 10:00 | ED_ITS ---
HPI - Female Genitourinary General Chief complaint: Urogenital-Female Stated complaint: UTI Time Seen by Provider: 07/16/25 10:01 Source: patient, RN notes reviewed and old records reviewed Mode of arrival: ambulatory Limitations: no limitations History of Present Illness HPI Narrative: 34 year old female who presents to [facility] care with complaints of burning with urination urinary frequency and urgency and some hesitancy with urination for 2 days. Patient reports some right lower back pain denies any flank with no fevers noted. Patient reports no nausea vomiting or diarrhea. Patient has not taken any OTC medications for her symptoms. Patient has had history of past UTI's. MD elicited complaint: UTI Pertinent past history: other (past UTI) Onset (ago): day(s) (2) Location of symptoms: urethra and low back (right) Severity: moderate Severity scale (1-10): 3 Vaginal discharge: none Vaginal bleeding: none Treatment prior to arrival: none Related Data Home Medications ?Medication ?Instructions ?Recorded ?Confirmed ?Last Taken ?Type etonogestrel 68 mg subdermal 1 implant subdermal ONCE 07/19/24 Unknown History implant (Nexplanon) Allergies Allergy/AdvReac Type Severity Reaction Status Date / Time No Known Allergies Allergy Verified 07/16/25 09:59 Review of Systems Review of Systems: CONSTITUTIONAL: Denies fever, chills, or sweats. CARDIOVASCULAR: Denies chest pain, palpitations, or edema. RESPIRATORY: Denies cough or dyspnea. GASTROINTESTINAL: Denies abdominal pain, nausea, vomiting, or diarrhea. GENITOURINARY: Reports dysuria, frequency, urgency. Denies flank pain or hematuria. SKIN: Denies rash or itching. MUSCULOSKELETAL: reports right lower back pain or myalgia. Denies CVA tenderness NEUROLOGIC: Denies headache All systems reviewed & are unremarkable except as noted in HPI and below PMFSH Past Medical History Medical History GERD (gastroesophageal reflux disease) Anxiety Surgical History Surgical History History of tonsillectomy Family History Family History Grandparent Hypertension Cerebrovascular accident Family history of coronary artery disease Diabetes mellitus Mother Family history of malignant neoplasm of ovary Other Family history of arthritis Family history of malignant neoplasm Social History Social History Tobacco type: e-cigarettes/vaping Second hand tobacco smoke exposure: Yes Alcohol intake: current Alcohol use details: socially Substance use: never Substance use type: does not use Living arrangements: with roommate(s) Occupation/Education: occupation Spiritual care concerns: No Comments At time of signature, agree with nursing past medical, surgical, social and family history. There is no relevant family history pertinent to the presenting complaint Exam Narrative: GENERAL: Well-appearing, well-nourished, and in no acute distress. HEAD: Normocephalic, atraumatic. NECK: Supple.no lymphadenopathy CHEST: Clear to auscultation. No respiratory distress.SAO2 100% on room air HEART: Regular rate and rhythm. No murmur heard. Normal peripheral pulses. ABDOMEN: Soft, nontender, nondistended, normal active bowel sounds. No CVA tenderness reports burning frequency and urgency of urination with some right sided low back pain EXTREMITIES: Normal range of motion. No edema. SKIN: Warm, dry, no rash. NEURO: No focal deficits. Alert and oriented x3. Course Course Level of Care: Express Care Visit Vital Signs Vital signs: Vital Signs Temperature 36.6 C 07/16/25 09:40 Pulse Rate 61 07/16/25 09:40 Respiratory Rate 18 07/16/25 09:40 Blood Pressure 123/66 07/16/25 09:40 Pulse Oximetry 100 07/16/25 09:40 Oxygen Delivery Room Air 07/16/25 09:40 Temperature 36.6 C 07/16/25 09:40 Pulse Rate 61 07/16/25 09:40 Respiratory Rate 18 07/16/25 09:40 Blood Pressure 123/66 07/16/25 09:40 Pulse Oximetry 100 07/16/25 09:40 Oxygen Delivery Room Air 07/16/25 09:40 reviewed MDM MDM Narrative Medical decision making narrative: Patient is symptomatic for UTI with urine positive for Leukocytes and blood in urine with patient appropriate for outpatient care and follow up. Anticipatory guidance and reasons to seek care in the ED reviewed with patient with understanding voiced. Differential Diagnosis Differential Diagnosis: Differential diagnostic considerations for female urogenital? issues include urinary tract infection, bacterial vaginosis, cervicitis, ovarian cyst, vaginitis, STI exposure, ovarian torsion, ectopic , cyst of Bartholin?s gland, cystitis, dysmenorrhea.?? Lab Data MDM Lab Attestation statement: I personally reviewed the patient's lab results. Lab results narrative: urine dip dark yellow and cloudy glucose negative bilirubin negative ketone negative specific gravity 1.025 blood 1+ pH 7.0 protein trace, urobilinogen 0.2 nitrite negative leukocytes 2+ urine sent for culture Labs: Lab Results 07/16/25 Range/Units 10:01 POC Urine Color Dark POC Urine Clarity Cloudy POC Urine pH 7.0 POC Ur Specif Edgar 1.025 POC Urine Protein Trace (Negative) POC Ur Glucose (UA) Negative (Negative) POC Urine Ketones Negative (Negative) POC Urine Blood 1+ (Negative) POC Urine Nitrite Negative (Negative) POC Urine Bilirubin Negative (Negative) POC Urine Urobilinogen 0.2 POC U Leukocyte Esteras 2+ (Negative) reviewed Critical Care Time Critical Care Time Critical Care Time: No Discharge Plan Discharge Clinical Impression: Urinary tract infection Patient Disposition: Home Condition: Stable Instructions: Antibiotic Form, Urinary Tract Infection in Women (ED) Additional Instructions: Increase fluids especially cranberry juice and water Avoid caffeine and carbonated beverages Antibiotic as directed Medicine as directed--cautioned it will cause your urine to be bright orange Tylenol/ibuprofen for pain or fever Follow-up with her primary care provider if further problems or concerns Recheck if you have fever over 101, nausea and vomiting. If your symptoms persist, change or worsen significantly before you can contact your personal physician then please, without delay, go to the emergency department for further evaluation. Follow-up with PCP in 7-10 days or sooner if needed Patient Language: Sammarinese Prescriptions: New phenazopyridine [Pyridium] 200 mg tablet 200 mg PO TID PRN (Reason: pain) Qty: 6 0RF amoxicillin-pot clavulanate 875-125 mg tablet 1 tablet PO Q12H Qty: 20 0RF Rx Instructions: take with food recommend taking probiotic or eating activia yogurt daily while on this medication No Action Nexplanon 68 mg implant 1 implant subdermal ONCE Rx Instructions: as a single dose Follow-up/Referrals: Latasha,Cornelio Molina MD [Primary Care Provider, Unknown] Stand Alone Forms: Work/School Release IP Time of Disposition: 10:20 Quality [place] Coma Scale Eyes: Open Verbal: Oriented and Alert Motor: Follows Commands [place] Coma Total Score: 15
[2025-07-16 10:04] LABS: EDUAAPPEAR Cloudy; EDUABILI Negative (Negative); EDUABLOOD 1+ (Negative); EDUACOLOR1 Dark; EDUAGLUCOSE Negative (Negative); EDUAKETONE Negative (Negative); EDUALEUKO 2+ (Negative); EDUANITRATE Negative (Negative); EDUAPH 7.0; EDUAPROTEIN Trace (Negative); EDUASPGRAVITY 1.025; EDUAUROBILI 0.2
== END 2025-07-16 10:25 | disposition home or self-care (01) ==
PROVIDERS: Emergency Provider Registered Nurse; PCP Family Medicine
DX: N39.0 Urinary tract infection, site not specified (principal); F17.290 Nicotine dependence, other tobacco product, uncomplicated; K21.9 Gastro-esophageal reflux disease without esophagitis
CPT/HCPCS: 81003; 87086; 87186; 99213; G0463